=== PATIENT | male | born 1935 | race Caucasian/White ===

== ENCOUNTER 2025-08-19 19:42 | Emergency (ER) | payer MEDICARE, OTHER, SELFPAY ==
[2025-08-19 19:49] VITALS: BP 144/104
[2025-08-19 22:26] VITALS: BP 159/101
[2025-08-19 23:00] VITALS: BP 148/71
--- NOTE | 2025-08-19 23:14 | ED.GENMED ---
History of Present Illness
General
Chief Complaint: Head Injury
Source: patient
Exam Limitations: none
Time Seen by Provider: 08/19/25 22:20
Nursing documentation reviewed up to this point in time: agreed with
History of Present Illness
History of Present Illness:
89-year-old male past medical history of dementia, A-fib currently on Xarelto presenting to the emergency department after mechanical fall where he was putting on his shirt lost his balance fell backward hit the back of his head did not lose
consciousness denies any symptoms otherwise. Did have some bleeding to the back of his head as well. Unsure when his last tetanus shot was. Denies any ongoing symptoms at this point.
Past History
Past History
ED Past Medical History: Arrthythmia (afib), GERD, HTN, Hypercholesterolemia, IDDM, Other (MGUS) and Other (Diabetes, chronic A. fib, chronic lightheadedness, chronic balance disorder, slight swallowing dysfunction)
ED Past Surgical History: Appendectomy, Tonsilectomy and Other (Hand surgery)
Social History
Tobacco: Non-smoker
Alcohol: None
Drug: None
Personal:
Living: with family
Employment: Retired
Family History
Family History: Negative Diabetes, Hypertension or CAD
Review of Systems
Review of Systems
Allergies reviewed?: Yes
All Other Systems: ROS reviewed and negative except as documented in HPI and ROS
Phy Exam
Physical Exam
Physical Exam:
GENERAL: Alert , in no apparent distress
EYE: pupils equal and reactive
NECK: Supple, no significant adenopathy.
ENT: Laceration to the right posterior occipital scalp 2.5 cm in length subcutaneous in depth. No foreign body seen. o/p clr, mmm.
CARDIAC: Regular rate and rhythm .
LUNGS: Clear breath sounds bilaterally, no acute respiratory distress, no wheezes/rales/rhonchi
ABDOMEN: Soft, without focal tenderness, no r/g, no cvat
NEUROLOGICAL: Alert and oriented, no focal neuro deficits
SKIN: Warm and dry, skin intact.
MUSCULOSKELETAL: No edema, well perfused.
PSYCH: Normal and appropriate interaction.
Course
Orders/Labs/Results
Orders:
Orders
08/19/25 19:51
CT Head W/o Iv Contrast Urgent
Comment:
Reason For Exam: head injury on Xaralto
08/19/25 23:06
Tetanus/Diphth/Acelpertussis [Adacel] 0.5 ml IM .ONCE ONE
Vital Signs
Initial and Last Documented VS:
Initial Vital Signs
Temp Pulse Resp BP Pulse Ox
97.7 F 93 16 144/104 97
08/19/25 19:49 08/19/25 19:49 08/19/25 19:49 08/19/25 19:49 08/19/25 19:49
Last Documented Vital Signs
Temp Pulse Resp BP Pulse Ox
97.7 F 107 30 148/71 96
08/19/25 19:49 08/19/25 23:15 08/19/25 23:00 08/19/25 23:00 08/19/25 23:15
Procedures
Laceration Closure
Right Occipital:
Status of Wound: clean
Size of Wound in cm: 2.5
Description of Wound Edges: sharp
Preparation: cleaned with saline
Anesthesia: 1% Lidocaine with epi
Revision/Debridement: routine- no revision
Wound exploration: explored to base- no FB
Type of Closure: single layer closure and interrupted sutures
Skin Closure Material: other (5-0 fast-absorbing plain gut)
Number of sutures: 5
MDM/Problems Addressed
MDM/Problems Addressed:
89-year-old male presenting after mechanical fall hitting the back of his head. Patient is on blood thinner. CT scan was performed did not show any signs of acute bleed. Otherwise he was found to have a laceration to the back of his head. This
was cleaned thoroughly and closed with 5 dissolving stitches. Also given updated tetanus shot otherwise stable for discharge. No additional symptoms otherwise at this time.
*Pulse Oximetry
SaO2: 96
Oxygen Mode of Delivery: Room air
Patient hypoxic: no (96)
*Critical Care Note
Total Time (30-74mins, 75-104mins- exclusive of procedures): Not Applicable
ED Attending Note
-
Portions of this chart may have been created with voice recognition software.� Occasional wrong word or��sound alike� substitutions may have occurred due to the inherent limitations of voice recognition software.
Discharge Plan
Departure
Patient Disposition: Home (Routine Discharge)
Date of Disposition: 08/19/25
Time of Disposition: 23:38
Patient with high blood pressure during this ER visit?: No
Condition: Good
Covid-19: Not Applicable
Discharge Problem:
Laceration of scalp
Instructions: Laceration Repair With Stitches (DC)
Prescriptions:
No Action
clonazepam 0.5 MG tablet
0.5 mg PO HS
atorvastatin 20 MG tablet
10 mg PO HS
insulin glargine [Lantus U-100 Insulin] 1,000 UNITS/10 ML solution
48 units SC HS
calcium carbonate [Antacid (calcium carbonate)] 1 TABLET tablet,chewable
2 tab PO PRN PRN (Reason: stomach/heartburn)
lisinopril 5 MG tablet
5 mg PO DAILY
saxagliptin [Onglyza] 2.5 MG tablet
5 mg PO Daily
rivaroxaban [Xarelto] 20 MG tablet
20 mg PO Daily
Durezol
1 drp LEFT EYE BID
Prolensa
1 drp BOTH EYES Daily
metoprolol succinate 25 MG tablet extended release 24 hr
25 mg PO BID Qty: 60 11RF
Referrals:
Gabe Fontanez MD [Family Provider, Internal Medicine]
Activity Restrictions/Additional Instructions:
You came to the emergency department today with concerns of a laceration to the back of your head. This was cleaned thoroughly closed with 5 dissolving stitches. Please keep the area clean with soap and water 1-2 times a day. You can start using
ointment at day 5 to help with the dissolving stitches dissolve. Otherwise return for any worsening, new or concerning symptoms.
Interventions
Interventions:
*General Assessment Last Done: 08/19/25 22:30
*Neglect/Abuse Screening Last Done: 08/19/25 19:49
*ED COVID-19 Vaccine History Last Done: 08/19/25 22:30
*ED Influenza Vaccine History Last Done: 08/19/25 22:30
[facility] Fall Risk Assessment Tool Last Done: 08/19/25 22:30
*Risk Screen - Suicide (C-SSRS) Last Done: 08/19/25 19:49
ED- Neurological Assessment Last Done: 08/19/25 22:33
ED-Skin Assessment Last Done: 08/19/25 22:33
Discharge Date and Time
Print Language: [place]
[2025-08-19] MEDS: ADACEL 0.5 ML IM (23:45)
== END 2025-08-20 00:05 | disposition home or self-care (01) ==
LOC: EMR 19:42
PROVIDERS: EMERGENCY PHYSICIAN Emergency Medicine; FAMILY PHYSICIAN Internal Medicine
DX: S01.01XA Laceration without foreign body of scalp, initial encounter (principal); W18.39XA Other fall on same level, initial encounter; E11.9 Type 2 diabetes mellitus without complications; E78.00 Pure hypercholesterolemia, unspecified; F03.90 Unspecified dementia, unspecified severity, without behavioral disturbance, psychotic disturbance, mood disturbance, and anxiety; I10 Essential (primary) hypertension; I48.20 Chronic atrial fibrillation, unspecified; Z79.01 Long term (current) use of anticoagulants; Z23 Encounter for immunization
CPT/HCPCS: 12001; 90471; 99284; 70450; 90715